=== PATIENT | male | born 1965 | race Caucasian/White ===

== ENCOUNTER 2023-03-08 07:51 | Emergency (ER) | payer OTHER, SELFPAY ==
[2023-03-08 07:58] VITALS: BP 151/97; PULSE 91; RESP 18; TEMP 36.4; O2SAT 95; BMI 31.8
[2023-03-08 08:20] LABS: Appearance Urine Clear (Clear); Bilirubin Urine Negative (Negative); Blood Urine 2+ (Negative); Color Urine Yellow (Yellow); Glucose Urine Negative (Negative); Ketones Urine 1+ (Negative); Leukocyte Esterase Urine Negative (Negative); Nitrite Urine Negative (Negative); Protein Urine Negative (Negative); Urobilinogen Urine 0.2 (0.2-1.0)
--- NOTE | 2023-03-08 08:29 | ED_ITS ---
HPI - Male Genitourinary General Time Seen by Provider: 08:29 Date Seen: 03/08/23 Chief complaint: Urogenital Problems, Male Stated complaint: scrotum pain, thinks kidney stones Time Seen by Provider: 03/08/23 08:02 Source: patient and RN notes reviewed Mode of arrival: ambulatory Limitations: no limitations History of Present Illness HPI Narrative: Marizol is a 57-year-old male coming in with urinary frequency and penile pain. He will get sharp shooting pains at the end of his penis intermittently. He has developed urinary frequency and urgency since Saturday night, today is Saturday. He is being worked up and evaluated for possible right radiculopathy, lumbar. He is doing physical therapy, has had to back injections. He tried prednisone gabapentin and neither really helped. He did not stay on the gabapentin. He really isn't taking much Tylenol or ibuprofen. He does not have a history of prior kidney stones. This woke him up at about 1:00 a.m. last night and really did not sleep after that. He states he is having no difficulty urinating but he is going frequently and feels like he has to go again immediately. Urinating alleviates his symptoms. No fevers or chills, no nausea or vomiting, denies any testicular pain, no groin pain, no abdominal pain. There is no true dysuria. No hematuria. He has an MRI of his back scheduled in April. Location: penis Related Data Home Medications Medication Instructions Recorded Confirmed Vitamin D (with calcium) 03/08/23 aspirin 81 mg tablet,delayed 81 mg PO DAILY 03/08/23 03/08/23 release (Adult Aspirin Regimen) lisinopril 03/08/23 metformin 03/08/23 omeprazole 03/08/23 Previous Rx's Medication Instructions Recorded tamsulosin 0.4 mg capsule (Flomax) 0.4 mg PO DAILY #14 caps 03/08/23 Allergies Allergy/AdvReac Type Severity Reaction Status Date / Time No Known Drug Allergies Allergy Verified 03/08/23 07:56 Review of Systems Status of ROS: Reports: 6 or more systems reviewed and unremarkable except as noted in History and below PFSH PFSH Social History Smoking Status: Never smoker Do you use any of these nicotine containing products: Smokeless Tobacco Second hand tobacco smoke exposure: No How often do you have a drink containing alcohol: monthly or less How many standard drinks containing alcohol do you have on a typical day: 1 or 2 How often do you have six or more drinks on one occasion: Never AUDIT-C Alcohol total score: 1 Non-prescribed substance use: marijuana (any form) service: No Exam Const: Vital Signs, click to edit/add: Vital Signs - 24 hr 03/08/23 07:58 Temperature 97.5 F L Pulse Rate [Pulse Oximeter] 91 Respiratory Rate 18 Blood Pressure [Ri ght Upper Arm] 151/97 H Pulse Oximetry 95 Oxygen Delivery Me thod Room Air Documenting provider has reviewed patient's vital signs: yes Common normals: no apparent distress, average body habitus, oriented x3, no limitations, healthy appearing, alert and well nourished General appearance: cooperative, comfortable, well kempt and well developed Other: Was sitting on the chair, moves easily to the bed. HENMT: Common normals: normocephalic, head/scalp atraumatic and hearing grossly normal bilaterally Head and scalp: normocephalic and atraumatic Face and sinus: normal facial exam Eye: Common normals: PERRL, EOMs intact bilaterally, conjunctivae normal and no scleral icterus Conjunctiva: conjunctiva(e) normal Pupil: PERRL Neck & C-Spine: Common normals: full ROM, no lymphadenopathy and supple Resp: Common normals: normal respiratory effort, no retractions, no use of accessory muscles and clear to auscultation bilaterally Effort & inspection: able to speak in complete sentences Auscultation: clear to auscultation bilaterally Cardio: Common normals: regular rate, regular rhythm, S1 normal heart sound, S2 normal heart sound, no gallops, no clicks, no murmurs and no rub Rate: regular rate Rhythm: regular rhythm Heart sounds: S1 normal and S2 normal GI: Common normals: Normal to inspection, nondistended, normoactive bowel sounds present, soft to palpation, non-tender, no hepatosplenomegaly and no masses Palpation: soft and no hepatosplenomegaly : Common normals: no CVA tenderness, external exam normal, testes normal, scrotum normal, no scrotal swelling and no hernias present Bladder/kidney exam: no CVA tenderness Meatus: meatus normal Scrotum: testes descended bilaterally Testes: testicular lie normal Back & Pelvis: Common normals: no CVA tenderness, thoracic and lumbar spine normal to inspection and no thoracic nor lumbar tenderness Neuro: Common normals: oriented x3 Sensorium/orientation: alert Psych: Appearance: well ket Course Course Hospital Course: Nursing staff appropriately collected urinalysis on arrival, do not see significant abnormalities with this. Will have bladder scan done, proceed with noncontrast CT given possible concern for potential urinary issues such as kidney stones. Will get baseline labs as well. Need to make sure that patient is not having urinary retention. Reevaluation(s) Time of Reevaluation #1: 09:40 Reevaluation #1: Reviewed with patient that there is indeed a 4 mm kidney stone at the left UVJ. We reviewed treatment recommendations for kidney stones, do recommend that he goes on Flomax. He is having more irritative urinary symptoms and I do not know that these will go away until the stone passes. Would recommend pushing fluids. He is advised to try some Tylenol and ibuprofen as needed per bottle direct ions. Vital Signs Vital signs: Initial Vital Signs Temperature 97.5 F L 03/08/23 07:58 Temperature Source Temporal Artery Scan 03/08/23 07:58 Pulse Rate 91 03/08/23 07:58 Respiratory Rate 18 03/08/23 07:58 Blood Pressure 151/97 H 03/08/23 07:58 Blood Pressure Mean 115 H 03/08/23 07:58 Pulse Oximetry 95 03/08/23 07:58 Oxygen Delivery Method Room Air 03/08/23 07:58 Vital Signs Temperature 97.5 F L 03/08/23 07:58 Pulse Rate 91 03/08/23 07:58 Respiratory Rate 18 03/08/23 07:58 Blood Pressure 151/97 H 03/08/23 07:58 Pulse Oximetry 95 03/08/23 07:58 Oxygen Delivery Method Room Air 03/08/23 07:58 Temperature 97.5 F L 03/08/23 07:58 Pulse Rate 91 03/08/23 07:58 Respiratory Rate 18 03/08/23 07:58 Blood Pressure 151/97 H 03/08/23 07:58 Pulse Oximetry 95 03/08/23 07:58 Oxygen Delivery Method Room Air 03/08/23 07:58 MDM - Male Genitourinary Lab Data Attestation: I reviewed the patient's lab results. Labs: Lab Results 03/08/23 03/08/23 Range/Units 08:12 08:49 WBC 8.28 (4.50-11.00) K/uL RBC 5.02 (4.30-5.90) m/uL Hgb 15.5 (13.5-17.5) gm/dL Hct 46.4 (37.0-53.0) % MCV 92 (80-100) fL MCH 31 (26-34) pg MCHC 33 (32-36) gm/dL RDW Coeff of Yaniv 13.0 (11.5-15.5) % Plt Count 257 (140-440) K/uL Neut % (Auto) 71.0 (42.0-72.0) % Lymph % (Auto) 21.6 (20-44) % [place] % (Auto) 5.2 (0.0-11.0) % Eos % (Auto) 1.8 (0.0-7.0) % Baso % (Auto) 0.2 (0.0-3.0) % Neut # (Auto) 5.87 (1.7-7.0) K/uL Lymph # (Auto) 1.79 (0.90-2.90) K/uL [place] # (Auto) 0.40 (0.00-0.90) K/UL Eos # (Auto) 0.15 (0.00-0.50) K/uL Baso # (Auto) 0.02 (0.00-0.30) K/uL Abs Immat Gran (auto) 0.02 (0.00-0.30) K/uL Imm/Tot Granulo (auto) 0.2 % Sodium 139 (135-149) mmol/L Potassium 4.2 (3.6-5.1) mmol/L Chloride 102 (96-114) mmol/L Carbon Dioxide 29 (20-32) mmol/L BUN 16 (7-30) mg/dL Creatinine 0.8 (0.5-1.5) mg/dL Estimated Creat Clear 105.89 Estimated GFR 102 ml/min Glucose 117 H (60-115) mg/dL Calcium 10.0 (8.4-10.6) mg/dL C-Reactive Protein < 0.5 L (0.5-1.0) mg/dL Urine Color Yellow (Yellow) Urine Appearance Clear (Clear) Urine pH 6.0 (5.0-8.5) Ur Specific Vaughan 1.010 (1.000-1.030) Urine Protein Negative (Negative) Urine Glucose (UA) Negative (Negative) Urine Ketones 1+ A (Negative) Urine Blood 2+ A (Negative) Urine Nitrite Negative (Negative) Urine Bilirubin Negative (Negative) Urine Urobilinogen 0.2 (0.2-1.0) Ur Leukocyte Esterase Negative (Negative) Urine RBC 0-2 (0-2) Urine WBC 0-2 (0-5) Ur Squamous Epith Cells Few (None-Few) Urine Bacteria None (None) Imaging Data CT scan - abdomen: Attestation: I have reviewed the pertinent imaging results. My impression: I see probable kidney stone left side it near the UVJ, await Radiology confirmation over read on this. Radiologist's impression: Patient: MARIZOL CARNES Facility:?[facility] Patient ID:?[id number] Site Patient ID:?[id number]. Site :?[id number] Study:?CT Abdomen/Pelvis W/O-03/08/2023 9:04:25 AM Ordering Physician:Colleen Waldron Final Report: INDICATION: URINARY FREQUENCY, PAIN TECHNIQUE: CT abdomen and pelvis without contrast, stone protocol. COMPARISON: None. FINDINGS: Kidney/ureters: Kidneys are normal in caliber. Right intrarenal calculus, measuring 3 mm. No left intrarenal calculus is identified. There is a 4 mm calculus at the left ureterovesicular junction resulting in minimal periureteral and perinephric inflammation without significant hydronephrosis. Bladder wall thickening which may relate to degree of decompression but could be seen in setting of cystitis. Liver/gallbladder/bile ducts: The liver is normal in size, shape and attenuation. Status post cholecystectomy. No biliary dilatation. Spleen/pancreas/adrenal glands: The spleen, adrenal glands and pancreas are within normal limits. GI tract: No bowel obstruction. Colonic diverticulosis without evidence of acute diverticulitis. Appendix appears unremarkable. Abdominal wall/omentum/peritoneum: No free air or significant free fluid. No mass or inflammation. Lymph nodes: No lymphadenopathy. Pelvis: Unremarkable pelvis. Lower chest: Unremarkable. Bones: Mild multilevel degenerative spondylosis without acute fracture or aggressive osseous lesion. IMPRESSION: 1. There is a 4 mm calculus at the left ureterovesicular junction resulting in minimal periureteral and perinephric inflammation, without significant hydronephrosis. 2. Right intrarenal calculus, measuring 3 mm. No left intrarenal calculus is identified. 3. Bladder wall thickening which may relate to degree of decompression but could be seen in setting of cystitis. 4. Colonic diverticulosis without evidence of acute diverticulitis. Please note that all CT scans at this facility use dose modulation, iterative reconstruction, and/or weight-based dosing when appropriate to reduce radiation dose to as low as reasonably achievable. Dictated by Abhishek Sanchez MD @ 03/08/2023 9:32:31 AM (Electronic Signature) Discharge Plan Discharge Clinical Impression: Kidney stone on left side Patient Disposition: Home, Self-Care Condition: Stable Instructions: Kidney Stones (ED), Renal Colic (ED) Additional Instructions: Take Flomax daily until the stone passes. Push fluids for goal of keeping urine clear. Water with lemon in it can be helpful in preventing kidney stone formation. If the stone has not passed/symptoms have not improved within 1 week, do need to follow up in clinic for re-evaluation. If you develop severe uncontrolled pain, have fever or vomiting with this, do need to be re-evaluated in the emergency room. Tylenol and ibuprofen for any discomfort, follow bottle directions for dosing. Activity Level: Activity as Tolerated Prescriptions: New tamsulosin [Flomax] 0.4 mg capsule 0.4 mg PO DAILY Qty: 14 0RF No Action metformin Vitamin D (with calcium) aspirin [Adult Aspirin Regimen] 81 mg tablet,delayed release (DR/EC) 81 mg PO DAILY lisinopril omeprazole Stand Alone Forms: [employer] Info Instructions
[2023-03-08 08:31] LABS: RBC Urine 0-2 (0-2); Squamous Epithelial Cell Urine Few (None-Few); WBC Urine 0-2 (0-5)
--- NOTE | 2023-03-08 08:36 | CRLHL7_ITS ---
For Patients: As a result of the Century Cures Act, medical imaging exams and procedure reports are released immediately into your electronic medical record. You may view this report before your referring provider. If you have questions, please contact your health care provider. INDICATION: URINARY FREQUENCY, PAIN TECHNIQUE: CT abdomen and pelvis without contrast, stone protocol. COMPARISON: None. FINDINGS: Kidney/ureters: Kidneys are normal in caliber. Right intrarenal calculus, measuring 3 mm. No left intrarenal calculus is identified. There is a 4 mm calculus at the left ureterovesicular junction resulting in minimal periureteral and perinephric inflammation without significant hydronephrosis. Bladder wall thickening which may relate to degree of decompression but could be seen in setting of cystitis. Liver/gallbladder/bile ducts: The liver is normal in size, shape and attenuation. Status post cholecystectomy. No biliary dilatation. Spleen/pancreas/adrenal glands: The spleen, adrenal glands and pancreas are within normal limits. GI tract: No bowel obstruction. Colonic diverticulosis without evidence of acute diverticulitis. Appendix appears unremarkable. Abdominal wall/omentum/peritoneum: No free air or significant free fluid. No mass or inflammation. Lymph nodes: No lymphadenopathy. Pelvis: Unremarkable pelvis. Lower chest: Unremarkable. Bones: Mild multilevel degenerative spondylosis without acute fracture or aggressive osseous lesion. IMPRESSION: 1. There is a 4 mm calculus at the left ureterovesicular junction resulting in minimal periureteral and perinephric inflammation, without significant hydronephrosis. 2. Right intrarenal calculus, measuring 3 mm. No left intrarenal calculus is identified. 3. Bladder wall thickening which may relate to degree of decompression but could be seen in setting of cystitis. 4. Colonic diverticulosis without evidence of acute diverticulitis. Please note that all CT scans at this facility use dose modulation, iterative reconstruction, and/or weight-based dosing when appropriate to reduce radiation dose to as low as reasonably achievable. Dictated by Abhishek Sanchez MD @ 03/08/2023 9:32:31 AM (Electronically Signed)
[2023-03-08 09:04] LABS: Basophils Absolute Auto 0.02 K/uL (0.00-0.30); Basophils Percent Auto 0.2 % (0.0-3.0); Eosinophils Absolute Auto 0.15 K/uL (0.00-0.50); Eosinophils Percent Auto 1.8 % (0.0-7.0); Hematocrit 46.4 % (37.0-53.0); Hemoglobin* 15.5 gm/dL (13.5-17.5); Immature Granulocytes Abs Auto 0.02 K/uL (0.00-0.30); Immature Granulocytes Pct Auto 0.2 %; Lymphocytes Absolute Auto 1.79 K/uL (0.90-2.90); Lymphocytes Percent Auto 21.6 % (20-44); Mean Corpuscular HGB Conc 33 gm/dL (32-36); Mean Corpuscular Hemoglobin 31 pg (26-34); Mean Corpuscular Volume 92 fL (80-100); Monocytes Percent Auto 5.2 % (0.0-11.0); Neutrophils Absolute Auto 5.87 K/uL (1.7-7.0); Platelet Count* 257 K/uL (140-440); Red Blood Count 5.02 m/uL (4.30-5.90); White Blood Count* 8.28 K/uL (4.50-11.00)
[2023-03-08 09:08] LABS: Slide Review Reflex No
[2023-03-08 09:11] LABS: Chloride* 102 mmol/L (96-114); Potassium* 4.2 mmol/L (3.6-5.1); Sodium* 139 mmol/L (135-149)
[2023-03-08 09:14] LABS: Blood Urea Nitrogen* 16 mg/dL (7-30); Carbon Dioxide* 29 mmol/L (20-32); Creatinine* 0.8 mg/dL (0.5-1.5); Est. Creatinine Clearance* 105.89; Estimated Glomerular Filt Rate 102 ml/min
[2023-03-08 09:15] LABS: Glucose* 117 mg/dL (60-115)
[2023-03-08 09:22] LABS: C Reactive Protein* < 0.5 mg/dL (0.5-1.0)
== END 2023-03-08 09:50 | disposition home or self-care (01) ==
PROVIDERS: Emergency Provider Family Medicine
DX: N20.0 Calculus of kidney (principal)
CPT/HCPCS: 36415; 74176; 80048; 81001; 85025; 86140; 99284

== ENCOUNTER 2023-05-17 13:15 | Outpatient (RCR) | payer BC, SELFPAY ==
--- NOTE | 2023-05-10 11:32 | PT.OPEX ---
[facility] PT [facility] Outpatient Eval Start: 05/10/23 07:30 Freq: Status: Active Protocol: Document 05/10/23 07:31 CRP (Rec: 05/10/23 09:41 CRP [id number]) E-signed By Angelo Owens, PT Physical Therapy Outpatient Evaluation Insurance Information Insurance Name [employer] Medical Diagnosis Lumbar radiculopathy Low back pain Referring MD Dr Rueda Subjective Subjective When driving feels like sitting on baseball R glute. Pain down the back of hamstring. LE will also go a little numb. Standing and keeping moving on his feet is always better. Can get to point of being pain free. Sleeping at night is really tough. Has not had to drive this week and his sxs have been a lot better. This has been going on about 6-8 months . Currently standing here he feels fine. If her were to sit his sxs would come on in 10-15 minutes. Started steroid last Saturday and this did help. Overall feels better this week. Had gluteal injection but this did not help. Has appt for lumbar injection in about 2 weeks. Mornings are very painful and the leg does not work well when he first gets out of bed. 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 Objective Range of Motion Trunk ROM Flex min dec - pull into the R hamstring - less with R foot up on step Ext mod dec with LBP R SB min.mod dec L SB eliel decrease R rot min dec L rot mod dec with R gluteal pain Hip ROM WNL BILat Strength R great toe ext weakness Balance & Gait WNL Posture Flattened lumbar spine Functional Test Performed & Score SLR positive on R at 45 deg Segmental testing hypomob and painful L4 L SL r rot mobs - decreased neural tension Assessment Assessment/Impression Pts presents to the clinic with signs and sxs consistent with lumbar spine DDD/DJD and resulting lumbar radiculopathy into the R LE. Skilled PT necessary to incorporate ther ex, nm brianna, ther act, manual therapy and pt education to decrease pain and improve functional mobility. Plan of Care Rehabilitation Potential Excellent Physical Therapy Goals 1. Pt will be 100% independent with HEP in 6 weeks. 2. Pt will wake in the morning with 75% decrease in pain in 10 weeks. 3. Pt will sit in car for work for full work day without R LE pain in 12 weeks. Coordination/Communication With Referral Source Treatment Plan/Direct Interventions Joint Mobilization,Manual Therapy,Neuromuscular Re-ed, Self-Care/Home Management, Therapeutic Activities, Therapeutic Exercises,Traction (Mechanical) Frequency/Duration 1-2x/wk for 12 weeks Patient Will Be Discharged From Therapy Completion of LTG(s),Skills Plateau,Independent w/HEP, Independently Progressing Evaluation Billing Untimed Code Treatment Minutes 30 Complexity Moderate Certification Information Physician Comment/Change : Physician NPI Number #
== END 2023-09-14 23:59 | disposition home or self-care (01) ==
PROVIDERS: Visit Provider Family Medicine
DX: M54.16 Radiculopathy, lumbar region (principal); M54.50 Low back pain, unspecified; M77.8 Other enthesopathies, not elsewhere classified; M51.36 Other intervertebral disc degeneration, lumbar region; M75.02 Adhesive capsulitis of left shoulder; Z51.89 Encounter for other specified aftercare
CPT/HCPCS: 97110; 97140; 97162

== ENCOUNTER 2023-05-21 07:03 | Outpatient (CLI) | payer BC, SELFPAY | END 2023-05-21 07:04 | disposition home or self-care (01) | LOC: INJ CL 07:05 | PROVIDERS: Visit Provider Family Medicine | DX: M54.16 Radiculopathy, lumbar region (principal); M51.36 Other intervertebral disc degeneration, lumbar region | CPT/HCPCS: 62323; J1100; Q9966 ==

== ENCOUNTER 2023-09-24 07:14 | Outpatient (CLI) | payer BC, SELFPAY | END 2023-09-24 07:15 | disposition home or self-care (01) | LOC: INJ CL 07:15 | PROVIDERS: Visit Provider Family Medicine | DX: M54.16 Radiculopathy, lumbar region (principal); M51.36 Other intervertebral disc degeneration, lumbar region | CPT/HCPCS: 62323; J0702; Q9966 ==